=== PATIENT | female | born 1990 | race Two or more races ===

== ENCOUNTER 2020-04-14 21:39 | Emergency (ER) | payer BC ==
[~2020-04-14] VITALS: Ht 152.4 cm; Wt 49.6 kg
[2020-04-14] MEDS ORDERED: SODIUM CHLORIDE 0.9% 1,000ML IVBOLUS ONE (22:30)
[2020-04-14] MEDS ORDERED: SODIUM CHLORIDE FLUSH 10ML SYR IVF ONE (22:30)
[2020-04-14] MEDS ORDERED: ONDANSETRON 2MG/ML, 2ML IVPush ONE (22:30)
--- NOTE | 2020-04-14 22:30 | NUR ---
This is a 30 yo female coming in for "After I came back from the gym I had really sharp pains and cramping in low abdomen." States she vomited and became pale, felt like she was going to pass out. LMP x1 week ago, nothing of note out of the ordinary. Patient c/o suprapubic cramping, tender to palpation. A&Ox4, denies nausea at this time, c/o feeling lightheaded. All monitoring in place, VSS, NSR on nuclear station operator. Call light in reach. PIV placed, labs drawn, IVF started
[2020-04-14 22:50] LABS: MD YES; MEAN CORPUSCULAR HEMOGLOBIN 27.5 pg (27.0-34.8); MEAN CORPUSCULAR VOLUME 85.7 fL (80-100); PLATELET COUNT 322 x10^3/uL (130-400); RED BLOOD COUNT 4.72 x10^6/uL (3.82-5.3); RED CELL DISTRIBUTION WIDTH 14.2 % (9.6-15.2)
[2020-04-14 22:52] LABS: ALANINE AMINOTRANSFERASE 31 U/L (12-78); ALBUMIN 4.3 g/dL (3.4-5.0); ANION GAP 6 mmol/L (5-15); CALCIUM 9.1 mg/dL (8.5-10.1); CHLORIDE 108 mmol/L (98-107); CREATININE 0.93 mg/dL (0.55-1.02)
[2020-04-14 22:56] LABS: ALKALINE PHOSPHATASE 54 U/L (45-117); BILIRUBIN,TOTAL 0.6 mg/dL (0.2-1.0); TOTAL PROTEIN 7.7 g/dL (6.4-8.2)
[2020-04-14 22:58] LABS: MICROSCOPIC INDICATED
[2020-04-14 23:18] LABS: BAND#(MANUAL) 0.45 x10^3/uL; BANDS%(MANUAL) 2 % (0-7); LYMPH#(MANUAL) 2.24 x10^3/uL (1-3.4); LYMPHS% (MANUAL) 10 % (22-44); MONOS#(MANUAL) 0.22 x10^3/uL (0.3-2.7); MONOS% (MANUAL) 1 % (2-9); SEG#(MANUAL) 19.49 x10^3/uL (1.8-6.8); SEGS% (MANUAL) 87 % (42-75)
[2020-04-14 23:19] LABS: <PLATELET ESTIMATE> ADEQUATE; <RBC MORPHOLOGY> NORMAL; LARGE PLATELETS 1+
--- NOTE | 2020-04-14 23:28 | NUR ---
Patient resting on gurney, respirations even and unlabored. VSS, NADN. Abd US complete, patient is to go to transvaginal US.
--- NOTE | 2020-04-14 23:34 | NUR ---
Patient to US
[2020-04-15 00:30] VITALS: BP 101/64
--- NOTE | 2020-04-15 00:43 | NUR ---
All results back at this time, patient up for recheck
--- NOTE | 2020-04-15 01:38 | NUR ---
Patient given discharge instructions and they have confirmed that they understand the instructions. Patient ambulatory with steady gait.
[2020-04-16] MEDS ORDERED: OXYC-302 PO (16:57)
[2020-04-16] MEDS ORDERED: DOCU-131 PO (16:58)
[2020-04-16] MEDS ORDERED: IBUP-1222 PO (16:58)
== END 2020-04-15 01:40 | disposition home or self-care (01) ==
LOC: ED 23:08
DX: D72.829 Elevated white blood cell count, unspecified (principal); N83.291 Other ovarian cyst, right side; N83.8 Other noninflammatory disorders of ovary, fallopian tube and broad ligament; R42 Dizziness and giddiness; R11.2 Nausea with vomiting, unspecified; R10.30 Lower abdominal pain, unspecified; R10.9 Unspecified abdominal pain; R55 Syncope and collapse
CPT/HCPCS: 36415; 76700; 76830; 80053; 81001; 83690; 84703; 85025; 93005; 96360; 99285; J7030

== ENCOUNTER 2020-04-16 06:42 | Inpatient (IN) | payer BC ==
[~2020-04-16] VITALS: Ht 152.4 cm; Wt 50.2 kg
[2020-04-16] MEDS ORDERED: ONDANSETRON 2MG/ML, 2ML ONE (07:27)
[2020-04-16] MEDS ORDERED: MORPHINE SULFATE 4 MG/ML, 1ML ONE ×2 (07:27→08:26)
[2020-04-16 07:29] LABS: MEAN CORPUSCULAR HEMOGLOBIN 27.9 pg (27.0-34.8); MEAN CORPUSCULAR HGB CONC 32.4 g/dL (32.4-35.8); MEAN PLATELET VOLUME 10.3 fL (7.4-10.4); PLATELET COUNT 269 x10^3/uL (130-400); RED BLOOD COUNT 4.83 x10^6/uL (3.82-5.3); RED CELL DISTRIBUTION WIDTH 13.9 % (9.6-15.2)
[2020-04-16] MEDS ORDERED: ONDANSETRON 2MG/ML, 2ML IVPush ONE (07:30)
[2020-04-16] MEDS ORDERED: SODIUM CHLORIDE 0.9% 1,000ML IVBOLUS ONE (07:30)
[2020-04-16] MEDS: MORPHINE SULFATE 4 MG/ML, 1ML IVPush PRN ×2 (07:30→08:28)
[2020-04-16 07:41] LABS: ALANINE AMINOTRANSFERASE 86 U/L (12-78); ALBUMIN 3.9 g/dL (3.4-5.0); ANION GAP 6 mmol/L (5-15); CALCIUM 9.3 mg/dL (8.5-10.1); CHLORIDE 107 mmol/L (98-107)
[2020-04-16 07:43] LABS: ALKALINE PHOSPHATASE 76 U/L (45-117); BILIRUBIN,TOTAL 2.4 mg/dL (0.2-1.0); CREATININE 0.85 mg/dL (0.55-1.02)
[2020-04-16 07:55] LABS: BASOPHILS # (AUTO) 0.01 x10^3/uL (0-0.1); BASOPHILS % (AUTO) 0 % (0-1); EOSINOPHILS % (AUTO) 0 % (1-7); LYMPHOCYTES # (AUTO) 1.12 x10^3/uL (1-3.4); LYMPHOCYTES % (AUTO) 5 % (22-44); MD SCAN; MONOCYTES # (AUTO) 0.36 x10^3/uL (0.2-0.8); MONOCYTES % (AUTO) 2 % (2-9); NEUTROPHILS % (AUTO) 93 % (42-75)
[2020-04-16] MEDS ORDERED: OMNIPAQUE 350 MG/ML, 100ML BOTTLE ONE (08:06)
[2020-04-16 09:02] LABS: MICROSCOPIC NOT IND
[2020-04-16] MEDS ORDERED: SODIUM CHLORIDE 0.9% 1,000 ML IV ONE (09:15)
[2020-04-16] MEDS ORDERED: SODIUM CHLORIDE FLUSH 10ML SYR IVF PRN (09:30)
[2020-04-16] MEDS ORDERED: EPINEPHRINE 1 MG/ML, 1ML ONE (10:58)
[2020-04-16] MEDS ORDERED: SILVER NITRATE STICK TP ONE (10:58)
[2020-04-16] MEDS ORDERED: BUPIVACAINE/PF 0.25% ONE (10:58)
[2020-04-16] MEDS ORDERED: MIDAZOLAM 1 MG/ML, 2ML ONE (11:27)
[2020-04-16] MEDS ORDERED: FENTANYL PF 100 MCG/2ML ONE (11:27)
[2020-04-16] MEDS ORDERED: PROPOFOL 10 MG/ML, 20ML ONE (11:29)
[2020-04-16] MEDS ORDERED: BUPIVACAINE/PF-EPI 0.25% 1:200K IM ONE (12:17)
[2020-04-16] MEDS ORDERED: OXYcodone 5 MG/5 ML ORAL.SOL UDC PO PRN (13:00)
[2020-04-16] MEDS ORDERED: ONDANSETRON 2MG/ML, 2ML IVPush PRN (13:00)
[2020-04-16] MEDS ORDERED: DIAZEPAM 5 MG/ML, 2ML IVPush PRN (13:00)
[2020-04-16] MEDS ORDERED: DIPHENHYDRAMINE 50 MG/ML, 1ML IVPush PRN (13:00)
[2020-04-16] MEDS ORDERED: PROMETHAZINE 25 MG/ML, 1ML IVPush PRN (13:00)
[2020-04-16] MEDS ORDERED: HYDROmorphone 1 MG/ML, 1ML INJ IVPush PRN (13:00)
[2020-04-16] MEDS ORDERED: FENTANYL PF 100 MCG/2ML IV PRN ×2 (13:00→15:00)
[2020-04-16] MEDS ORDERED: MEPERIDINE/PF 25MG/0.5ML IVPush PRN (13:00)
[2020-04-16] MEDS ORDERED: OXYcodone 5 MG/5 ML ORAL.SOL UDC ONE (14:00)
[2020-04-16] MEDS ORDERED: AZITHROMYCIN 500 MG in SODIUM CHLORIDE 0.9% 250 ML IV ONE (14:55)
[2020-04-16] MEDS ORDERED: KETOROLAC 30 MG/1 ML IV PRN (15:00)
[2020-04-16] MEDS ORDERED: PROMETHAZINE 25 MG SUPP PR ONE (15:00)
[2020-04-16] MEDS ORDERED: HYDROcodone/APAP 7.5-325MG/15ML UDC PO PRN (15:00)
[2020-04-16] MEDS ORDERED: ONDANSETRON 2MG/ML, 2ML IV PRN (15:00)
[2020-04-16] MEDS ORDERED: OXYC-302 PO (16:57)
[2020-04-16] MEDS ORDERED: IBUP-1222 PO (16:58)
[2020-04-16] MEDS ORDERED: DOCU-131 PO (16:58)
[2020-04-16 17:40] VITALS: BP 107/73
[2020-04-16 20:53] VITALS: BP 93/57
== END 2020-04-16 20:00 | disposition home or self-care (01) | DRG 743 ==
LOC: ED 07:37 → EDIP 10:11 → 4NE 14:28
PROVIDERS: ADMIT Obstetrics & Gynecology; ATTEND Obstetrics & Gynecology
PROC: 0UB14ZZ Excision of Left Ovary, Percutaneous Endoscopic Approach (ICD-10-PCS; principal; 2020-04-16 11:00)
DX: D27.1 Benign neoplasm of left ovary (principal); N83.209 Unspecified ovarian cyst, unspecified side; D72.829 Elevated white blood cell count, unspecified; N80.3 Endometriosis of pelvic peritoneum; R10.9 Unspecified abdominal pain; Z20.828 Contact with and (suspected) exposure to other viral communicable diseases
CPT/HCPCS: 36415; 74177; 80053; 81003; 83690; 84703; 85025; 87635; 96361; 96374; 96375; 96376; 99285; G0378; J0171; J0456; J2250; J2405; J2704; J3010; J3490; Q9967; J2270; J7030; J7050